=== PATIENT | female | born 1980 | race Two or more races ===

== ENCOUNTER 2016-10-15 13:39 | Emergency (ER) | payer MEDICAID ==
[~2016-10-15] VITALS: Ht 162.6 cm; Wt 120.2 kg
[~2016-10-15 13:39] MED LIST: KEFLEX500 MG ORAL; LEVOTHYROXINE25 MCG ORAL; METFORMIN HCL850 M1 ORAL; NKM
[2016-10-15 14:02] VITALS: BP 145/84
[2016-10-15] MEDS ORDERED: METFORMIN HCL850 M1 ORAL (14:04)
[2016-10-15] MEDS ORDERED: LEVOTHYROXINE125 MCG ORAL (14:04)
[2016-10-15 15:01] LABS: APPEARANCE,URINE SLIGHTLY CLOUDY; KETONES,URINE NEGATIVE (NEGATIVE); LEUKOCYTE ESTERASE ,URINE 2+ (NEGATIVE); NITRITE,URINE NEGATIVE (NEGATIVE); PH,URINE 6 (4.5-8.0); PROTEIN,URINE 3+ (NEGATIVE); UROBILINOGEN,URINE NORMAL MG/DL (0.0-1.0)
[2016-10-15 15:07] LABS: BACTERIA,URINE FEW /HPF; SQUAMOUS EPITHELIAL CELL,UR MODERATE /LPF (NONE/OCC); WBC,URINE 15-20 /HPF (0 - 2)
[2016-10-15] MEDS ORDERED: NITROFURANTOIN100 M2 ORAL (15:26)
[2016-10-15] MEDS ORDERED: FLUCONAZOLE150 MG ORAL (15:26)
[2016-10-15 16:31] VITALS: BP 137/81
--- NOTE | 2016-10-15 19:50 | Emergency Room Report ---
History of Present Illness General Chief Complaint: Female Urogenital Problems Present Illness HPI the patient is a 36-year-old female presenting for one month of increased urinary frequency, lower abdominal pain, thin white vaginal discharge. She has tried Monistat at home which has not helped. Pain is described as a 3/10 dull ache in the mid lower abdomen and does not radiate. No known provoking or relieving factors. She denies dysuria, N, V, F, chills, flank pain, diarrhea, constipation, foul smelling discharge, hematuria Allergies: Coded Allergies: No Known Allergies (Unverified , 01/11/16) Patient History Past Medical History: see triage record Pertinent Family History: none Last Menstrual Period: 09/27/16 Now: No Reviewed Nursing Documentation: PMH: Agreed, PSxH: Agreed Nursing Documentation-PMH Hx Diabetes: Yes - hypothyroid Review of Systems All Other Systems: negative except mentioned in HPI Physical Exam Vital Signs Date Time Temp Pulse Resp B/P Pulse Ox O2 Delivery O2 Flow Rate FiO2 10/15/16 13:56 99.0 96 16 145/84 99 Room Air Sp02 EP Interpretation: reviewed, normal General Appearance: no apparent distress, alert, GCS 15, non-toxic Head: normocephalic, atraumatic Eyes: bilateral eye PERRL, bilateral eye normal inspection ENT: hearing grossly normal, normal pharynx, no angioedema, normal voice Neck: full range of motion, supple/symm/no masses Respiratory: chest non-tender, lungs clear, normal breath sounds, speaking full sentences Cardiovascular #1: regular rate, rhythm, no edema Gastrointestinal: normal bowel sounds, no mass, non-distended, no guarding, tenderness - suprapubic Genitourinary: normal inspection, no CVA tenderness Musculoskeletal: back normal, gait/station normal, normal range of motion, non- tender Neurologic: alert, oriented x3, responsive, motor strength/tone normal, sensory intact, speech normal Psychiatric: judgement/insight normal, memory normal, mood/affect normal, no suicidal/homicidal ideation Medical Decision Making PA Attestation Dr. Arguello is my supervising physician. Patient management was discussed with my supervising physician Diagnostic Impression: Primary Impression: Urinary tract infection Qualified Codes: N39.0 - Urinary tract infection, site not specified ER Course the patient is a 36-year-old female presenting for one month of increased urinary frequency, lower abdominal pain, thin white vaginal discharge Differential diagnosis considered but not limited to: UTI, BV, yeast infection, pyelonephritis, PID, PE: Vitals WNL. NAD. Abdomen: Normal appearance. Non distended. No ecchymosis. Normal BS. TTP over suprapubic region only. No McBurney point tenderness. No guarding. No CVA tenderness Urinalysis is consistent with urinary tract infection The patient discharged home with a prescription for Macrobid and is given ER precautions. The patient states that she often obtains a yeast infection after antibiotics and is given a prescription for Diflucan to be used after the course of antibiotics Laboratory Tests Test 10/15/16 14:30 Urine Color Pale yellow Urine Appearance Slightly cloudy Urine pH 6 (4.5-8.0) Urine Specific [place] 1.025 (1.005-1.035) Urine Protein 3+ (NEGATIVE) H Urine Glucose (UA) Negative (NEGATIVE) Urine Ketones Negative (NEGATIVE) Urine Occult Blood 2+ (NEGATIVE) H Urine Nitrite Negative (NEGATIVE) Urine Bilirubin Negative (NEGATIVE) Urine Urobilinogen Normal MG/DL (0.0-1.0) Urine Leukocyte Esterase 2+ (NEGATIVE) H Urine RBC 5-10 /HPF (0 - 2) H Urine WBC 15-20 /HPF (0 - 2) H Urine Squamous Epithelial Cells Moderate /LPF (NONE/OCC) H Urine Bacteria Few /HPF (NONE) Urine HCG, Qualitative Negative Lab Results Impression Urinalysis shows many white blood cells with few bacteria. No nitrites. Neg preg Last Vital Signs Date Time Temp Pulse Resp B/P Pulse Ox O2 Delivery O2 Flow Rate FiO2 10/15/16 16:31 99.0 70 16 137/81 99 Room Air Status: improved Disposition: HOME, SELF-CARE Condition: Improved Scripts Fluconazole (FLUCONAZOLE) 150 Mg Tablet 150 MG ORAL DAILY, #1 TAB 0 Refills Prov: TERZIAN,RACHEL P.A. 10/15/16 Nitrofurantoin Monohyd/M-Cryst* (MACROBID 100 MG*) 100 Mg Capsule 100 MG ORAL EVERY 12 HOURS, #14 CAP Prov: TERZIAN,RACHEL P.A. 10/15/16 Patient Instructions: Urinary Tract Infection, Vaginal Yeast Infection, Adult Additional Instructions: I discussed my findings with the patient. All questions and concerns have been answered. Treatment and medication compliance have been addressed. I advised the patient that they need to follow up with PMD in 3-5 days. Return to ED if symptoms worsen, new symptoms arise, or if needed for any reason. Patient verbalized understanding of discharge instructions. RACHEL ERNANDEZ Oct 15, 2016 19:50
== END 2016-10-15 15:50 | disposition home or self-care (01) ==
LOC: EMR 14:25
DX: N39.0 Urinary tract infection, site not specified (principal); E11.9 Type 2 diabetes mellitus without complications; E03.9 Hypothyroidism, unspecified
CPT/HCPCS: 81003; 81025; 87086; 99284